=== PATIENT | male | born 1990 | race Caucasian/White ===

== ENCOUNTER 2017-05-21 12:46 | Emergency (ER) | payer SELFPAY ==
[~2017-05-21] VITALS: Ht 182.9 cm; Wt 109.0 kg
[~2017-05-21 12:46] MED LIST: ARIPIPRAZOLE2 MG PO; BACTRIM,SEPT1 TABLE1 PO; BACTRIM,SEPT1 TABLET PO; BRINTELLIX10 MG PO; CIPRO500 MG PO; CLEOCIN150 MG PO; DOXYCYCLINE HY100 M3 PO; EFFEXOR XR150 MG PO; FLAGYL500 MG PO; FOCALIN; FOCALIN2.5 MG; PAXIL10 MG PO; PAXIL20 MG PO; PROMETHAZINE HC25 M1 PO; REXULTI2 MG PO; SEROQUEL100 MG PO; SERTRALINE HCL25 MG PO; VICODIN 5-3001 EACH PO; VIIBRYD40 MG PO; VYVANSE70 MG PO; ZOFRAN4 MG PO; [UNRECOGNIZED DRUG - OTHER] PO
[2017-05-21 13:25] LABS: HEMATOCRIT 49.6 % (38.0-50.0); MCH 29.8 PG (29.0-34.0); MCHC 35.5 G/DL (30.0-36.0); MCV 84.1 FL (86-99); RBC DIS.WIDTH-CV 11.6 % (11.8-14.6); RBC DIS.WIDTH-SD 35.3 % (39-53)
[2017-05-21 13:37] LABS: CHLORIDE 105 mEq/L (99-109); POTASSIUM 4.3 mEq/L (3.7-5.4); SODIUM 137 mEq/L (136-147)
[2017-05-21 13:39] LABS: GLUCOSE 185 mg/dL (70-99)
[2017-05-21 13:40] LABS: ANION GAP 12 MEQ/L (2-14)
[2017-05-21 13:41] LABS: TOTAL BILIRUBIN 0.5 mg/dL (0.0-1.0)
[2017-05-21 13:43] LABS: ALKALINE PHOSPHATASE 80 IU/L (3-129); GFR ESTIMATE (CALCULATED) > 59 mL/min/
[2017-05-21 13:44] LABS: UREA NITROGEN (BUN) 23 mg/dL (9-23)
[2017-05-21 13:46] LABS: LIPASE 16 U/L (1.0-51.0)
[2017-05-21 13:56] LABS: AMYLASE 48 IU/L (1-118)
[2017-05-21 14:10] LABS: MEAN PLAT.VOLUME 12.8 uM^3 (9.0-12.4); PLAT.SUFFICIENCY ADEQUATE; PLATELET COUNT 267 K/uL (156-360)
[2017-05-21 14:21] LABS: ADD MIUA? YES; BILIRUBIN NEGATIVE; BLOOD NEGATIVE; COLOR YELLOW ((YELLOW)); GLUCOSE (STRIP) NEGATIVE; KETONES 5; LEUKOCYTES NEGATIVE; NITRITE NEGATIVE; PROTEIN (STRIP) 30; SPECIFIC GRAVITY 1.027 (1.000-1.030); UROBILINOGEN 0.2 MG/DL (0.2-1.0)
[2017-05-21 14:32] LABS: BACTERIA RARE /HPF; EPITHELIAL CELLS RARE /HPF; MUCUS 1+ /LPF; UCUL ADDED? NO; WHITE BLOOD CELLS 0-5 /HPF (0-5)
[2017-05-21 14:44] LABS: ADD MEDTOX COMMENT Y; AMPHETAMINE NEGATIVE (500 ng/mL); BARBITURATES NEGATIVE (200 ng/mL); BENZODIAZEPINES NEGATIVE (150 ng/mL); COCAINE NEGATIVE (150 ng/mL); INTERNAL CONTROLS VALID? YES; METHADONE NEGATIVE (200 ng/mL); METHAMPHETAMINE NEGATIVE (500 ng/mL); OPIATES (MORPHINE) NEGATIVE (100 ng/mL); OXYCODONE NEGATIVE (100 ng/mL); PHENCYCLIDINE NEGATIVE (25 ng/mL); PROPOXYPHENE NEGATIVE (300 ng/mL); THC CANNABINOIDS PRESUMPTIVE POSITIVE (50 ng/mL); TRICYCLIC ANTIDEPRESSANTS NEGATIVE (300 ng/mL)
[2017-05-21] MEDS ORDERED: ZOFRAN ODT4 MG PO (14:55)
[2017-05-21 16:10] VITALS: BP 152/100
== END 2017-05-21 16:12 | disposition home or self-care (01) ==
LOC: EME 12:46
PROVIDERS: Nurse Practitioner Family
DX: R11.2 Nausea with vomiting, unspecified (principal); F12.10 Cannabis abuse, uncomplicated; T40.7X5A Adverse effect of cannabis (derivatives), initial encounter; Q43.3 Congenital malformations of intestinal fixation
CPT/HCPCS: 74177; 80053; 81003; 82150; 82150 91; 83690; 84999; 85027; 99281; 99285; C9113; J0500; J1630; J1885; J2405; J2765; J7030